=== PATIENT | female | born 1990 | race Caucasian/White ===

== ENCOUNTER 2018-08-09 07:22 | Emergency (ER) | payer OTHER ==
[2018-08-09 07:59] VITALS: BP 112/76
--- NOTE | 2018-08-09 08:11 | UC ---
General HPI - HPI Summary HPI Summary: 4 days ago woke with headache, congestion and subjective fever with chills. Now with sore throat, lost her voice and cough. Good PO. No SOB or CP. No N/V /D. 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 Meds: REviewed Tried dayquil and nyquil. - History of Current Complaint Chief Complaint: UCRespiratory Stated Complaint: ST,CONGESTION Time Seen by Provider: 08/09/18 08:04 Hx Last Menstrual Period: 08/08/18 Pain Intensity: 7 - Allergy/Home Medications Allergies/Adverse Reactions: Allergies Allergy/AdvReac Type Severity Reaction Status Date / Time No Known Allergies Allergy Verified 08/09/18 07:51 Home Medications: Home Medications Dm/Acetaminophen/Doxylamine [Vicks Nyquil Cold & Flu N 15-6.25-325 mg] 1 cap PO PRN 08/09/18 [History] PMH/Surg Hx/FS Hx/Imm Hx Previously Healthy: Yes - Surgical History Surgical History: None - Social History Alcohol Use: Occasionally Substance Use Type: None Smoking Status (MU): Never Smoked Tobacco Review of Systems All Other Systems Reviewed And Are Negative: Yes Constitutional: Positive: Chills ENT: Positive: Sore Throat, Sinus Congestion Physical Exam Triage Information Reviewed: Yes Appearance: Well-Appearing Vital Signs: Initial Vital Signs Temp 98.2 F 08/09/18 07:53 Pulse 64 08/09/18 07:53 Resp 16 08/09/18 07:53 BP 112/76 08/09/18 07:53 Pulse Ox 100 08/09/18 07:53 Vital Signs Reviewed: Yes ENT: Positive: Pharyngeal erythema, Nasal congestion, Tonsillar swelling Dental Exam: Normal Neck: Positive: Enlarged Nodes @ - anterior cervical chain Respiratory: Positive: Lungs clear, Normal breath sounds Cardiovascular: Positive: RRR, No Murmur Course/Dx - Course Course Of Treatment: Previously healthy with cough, congestion and sore throat. Nontoxic appearing. Rapid strep: NEgative. Dx: Viral syndrome/pharyngitis. Plan. Continue supportive care. Continue decongestant such as sudafed or dayquil. Continue to rest and drink plenty of fluids. If symptoms persist or worsen, call primary for further evaluation - Diagnoses Provider Diagnosis: Viral syndrome Discharge - Sign-Out/Discharge Documenting (check all that apply): Patient Departure All imaging exams completed and their final reports reviewed: No Studies - Discharge Plan Condition: Good Disposition: HOME Patient Education Materials: Pharyngitis (ED) Forms: *Work Release Referrals: No Primary Care Phys,NOPCP [Primary Care Provider] - Additional Instructions: Continue supportive care Continue decongestant such as sudafed or dayquil Continue to rest and drink plenty of fluids If symptoms persist or worsen, call primary for further evaluation - Billing Disposition and Condition Condition: GOOD Disposition: Home
== END 2018-08-09 08:28 | disposition home or self-care (01) ==
LOC: UCCORT 07:22
DX: B34.9 Viral infection, unspecified (principal); R09.81 Nasal congestion; R51 Headache; J02.9 Acute pharyngitis, unspecified; R05 Cough; R59.0 Localized enlarged lymph nodes
CPT/HCPCS: 87651; 99201; G0463

== ENCOUNTER 2018-08-26 09:55 | Emergency (ER) | payer OTHER ==
[2018-08-26 10:44] VITALS: BP 110/69
--- NOTE | 2018-08-26 10:56 | UC ---
Respiratory Complaint HPI - HPI Summary HPI Summary: 28 yo female with cough x >2 weeks productive at times initially febrile and had chills initially URI symptoms now with 4-5 day hx of right lateral chest pain No SOB - History of Current Complaint Chief Complaint: UCRespiratory Stated Complaint: CHEST CONGESTION,COUGH Time Seen by Provider: 08/26/18 10:46 Hx Obtained From: Patient Hx Last Menstrual Period: 08/03/18 Onset/Duration: Gradual Onset, Lasting Weeks Timing: Constant Severity Initially: Mild Severity Currently: Severe Pain Intensity: 8 Pain Scale Used: 0-10 Numeric Character: Cough: Nonproductive Aggravating Factors: Exertion, Deep Breaths Associated Signs And Symptoms: Positive: Fever - resolved, Chills - resolved, Pleuritic Chest Pain - right lateral x 4-5 days, Nasal Congestion - resolved, Sinus Discomfort - resolved - Allergies/Home Medications Allergies/Adverse Reactions: Allergies Allergy/AdvReac Type Severity Reaction Status Date / Time No Known Allergies Allergy Verified 08/26/18 10:38 PMH/Surg Hx/FS Hx/Imm Hx Previously Healthy: Yes - Surgical History Surgical History: None - Family History Known Family History: Positive: None - Social History Alcohol Use: Occasionally Substance Use Type: None Smoking Status (MU): Never Smoked Tobacco Review of Systems All Other Systems Reviewed And Are Negative: Yes Constitutional: Positive: Negative Skin: Positive: Negative Eyes: Positive: Negative ENT: Positive: Negative Respiratory: Positive: Cough Cardiovascular: Positive: Chest Pain - right lateral Gastrointestinal: Positive: Negative Genitourinary: Positive: Negative Motor: Positive: Negative Neurovascular: Positive: Negative Musculoskeletal: Positive: Negative Neurological: Positive: Negative Psychological: Positive: Negative Physical Exam Triage Information Reviewed: Yes Appearance: Well-Appearing, No Pain Distress, Well-Nourished Vital Signs: Initial Vital Signs Temp 98.5 F 08/26/18 10:39 Pulse 64 08/26/18 10:39 Resp 17 08/26/18 10:39 BP 110/69 08/26/18 10:39 Pulse Ox 100 08/26/18 10:39 Vital Signs Reviewed: Yes Eyes: Positive: Conjunctiva Clear ENT: Positive: Hearing grossly normal. Negative: Nasal congestion, Nasal drainage, Muffled voice, Hoarse voice Neck: Positive: Supple, Nontender, No Lymphadenopathy Respiratory: Positive: Lungs clear, Normal breath sounds, No respiratory distress, No accessory muscle use. Negative: Chest non-tender - right lat chest tenderness Cardiovascular: Positive: RRR, No Murmur Musculoskeletal: Positive: ROM Intact, No Edema Neurological: Positive: Alert Psychological Exam: Normal Skin Exam: Normal UC Diagnostic Evaluation - Laboratory O2 Sat by Pulse Oximetry: 100 - normal/not hyhpoxic Respiratory Course/Dx - Differential Dx/Diagnosis Provider Diagnosis: Bronchitis, Acute chest wall pain Discharge - Sign-Out/Discharge Documenting (check all that apply): Patient Departure All imaging exams completed and their final reports reviewed: Yes - Discharge Plan Condition: Critical Disposition: HOME Patient Education Materials: Acute Bronchitis (ED), Chest Wall Pain (ED) Referrals: No Primary Care Phys,NOPCP [Primary Care Provider] - - Billing Disposition and Condition Condition: CRITICAL Disposition: Home
== END 2018-08-26 11:39 | disposition home or self-care (01) ==
LOC: UCCORT 09:55
DX: J40 Bronchitis, not specified as acute or chronic (principal); R07.89 Other chest pain
CPT/HCPCS: 71046; 99212; G0463